=== PATIENT | male | born 1980 | race Caucasian/White ===

== ENCOUNTER 2016-06-04 22:16 | Emergency (ER) | payer OTHER ==
--- NOTE | 2016-06-04 23:55 | DIAGNOSTIC IMAGING REPORT ---
PROCEDURE: XR CHEST 1 VIEW INDICATION: CHEST PAIN TECHNIQUE: Single view chest. 2315 hours COMPARISON: 10/21/2011 FINDINGS: The cardiopulmonary contour and central vasculature are stable, within normal limits. The lungs are clear without focal consolidation, pleural effusion or pneumothorax. The osseous structures are intact. IMPRESSION: 1. No evidence of acute cardiopulmonary disease.
--- NOTE | 2016-06-05 02:39 | ED ORDER SUMMARY ---
..... Patient: TAM GUIDRY OrderSheet [facility] VisitID: [id number] [place] [address] 36y, M Registration Date/Time: 06/04/2016 ORDER SHEET Weight: 79.3 kg (stated) Allergies: No Known Drug Allergy GENERAL ORDERS: Bulk Plant Supervisor (Continuous) (23:02 06/04/2016 Homer ROBERT) (23:03 EInderbitzen R.N.) Chest 1V Urgent (23:06/04/2016 Homer ROBERT) (Ack 23:11 LMuller) (23:19 MCampbell) Cardiac Panel Stat (23:06/04/2016 Homer ROBERT) (23:03 EInderbitzen R.N.) Ethyl Alcohol Urgent (23:03 06/04/2016 Homer ROBERT) (23:03 EInderbitzen R.N.) Acetaminophen Level Urgent (23:06/04/2016 Hmoer ROBERT) (23:03 EInderbitzen R.N.) Pulse oximeter (23:03 06/04/2016 Homer ROBERT) (23:03 EInderbitzen R.N.) EKG - ER Stat (23:06/04/2016 Homer ROBERT) (23:03 EInderbitzen R.N.) MEDICATION ORDERS: Clonidine Topical 0.2 mg (NOW) (23:03 06/04/2016 Homer ROBERT) (Ack 23:04 EInderbitzen R.N.) (23:21 EInderbitzen R.N.) KCl PO 20 meq (NOW) (01:34 06/05/2016 Homer ROBERT) (1:43 EInderbitzen R.N.) IV FLUIDS: IV NS with Normal Saline 1 Liter, Multivitamin Concentrate Intravenous 1 amp/L, Thiamine HCl 100 mg/L: initial bolus none -, then 1000 mL/hr for X1 (NOW); Routine (23:02 06/04/2016 Homer ROBERT) (Ack 23:03 EInderbitzen R.N.) (23:21 EInderbitzen R.N.) Ativan IV 0.5 mg (NOW) (23:03 06/04/2016 Homer ROBERT) (Ack 23:04 EInderbitjose R.N.) (23:21 EInderbitzen R.N.) Zofran IV 4 mg (NOW) (23:03 06/04/2016 Homer ROBERT) (Ack 23:04 EInderbitzen R.N.) (23:20 EInderbitzen R.N.) Magnesium Sulfate IV 2 gm/50mL (NOW, over 2 hours) (01:34 06/05/2016 Homer ROBERT) (1:43 EInderbitzen R.N.) ORDER SHEET NOTES: [Electronically signed by Dahiana Michael R.N. (03:47 06/05/2016)] [Electronically signed by Tyrone Montalvo MD (17:40 06/07/2016)] [Electronically locked/signed by Dahiana Michael R.N. (03:47 06/05/2016)]
--- NOTE | 2016-06-05 02:39 | ED CLINICAL REPORT ---
Clinical Report - Physicians/Mid Levels [facility] [address] [place] [address] 06/04/2016 22:21 Patient: TAM GUIDRY Time Seen: 22:26 Jun 04 2016. Arrived- By private vehicle. Historian- patient. CPT: ER phys charges level 4 (#[id number]). HISTORY OF PRESENT ILLNESS Chief Complaint: CHEST DISCOMFORT. Due to rapid heart beat. It is described as palpitations and it is described as located in the central chest area. At its maximum, severity described as mild. When seen in the E.D., it was almost gone. Modifying factors- (ETOH makes it all better). 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 ( 3 days off pounding heart , feels weak. States is heavy drinker, every day, has been drinking all day today. Has been trying to detox himself and failed.). He has had difficulty breathing. Reports experiencing sweating episodes. No nausea or vomiting. and is still present. Onset during light activity. The patient has had nausea and has experienced diaphoresis. He has had mild vomiting. The vomiting has occurred only once. No coffee-grounds emesis or frankly bloody emesis. No difficulty breathing. (Pt stopped drinking 3 days ago but re-started today due to shakes, sweats and palpitations.). Similar symptoms previously: Milder. Recent medical care: Not recently seen/assessed. REVIEW OF SYSTEMS No fever, chills, cough, pedal edema or calf pain. No fainting episodes, headache, sore throat or blurred vision. No black stools or stools, difficulty with urination or urination or skin rash. No enlarged lymph nodes, joint pain, bloody stools or stools or constipation. No diarrhea, urinary frequency or hematuria. The patient has had mild abdominal pain. The pain is described as located in the upper abdomen and vomiting. The vomiting has occurred only once and nausea. All systems otherwise negative, except as recorded above. PAST HISTORY Hypertension. No history of heart disease, lung disease, renal disease, neurological disease or GI disease. No history of diabetes mellitus. Additional Surgeries: no known surgeries. Medications: None. Allergies: No Known Drug Allergy. SOCIAL HISTORY Alcohol use. Patient is a longstanding alcoholic. ADDITIONAL NOTES The nursing notes have been reviewed. PHYSICAL EXAM Vital Signs: 06/04/2016 22:24 BP: 159/94. HR: 120. RR: 20. O2 saturation: 100%. Temp: 98.4 F. Pain level now: 4/10. Appearance: Alert. Anxious. Patient in mild distress. Eyes: Pupils equal, round and reactive to light. Eyes normal inspection. ENT: Nose normal. Dry mucous membranes present. Neck: Normal inspection. Neck supple. CVS: Tachycardia. Heart sounds normal. Pulses normal. Respiratory: No respiratory distress. Breath sounds normal. Chest nontender. Abdomen: Soft. Mild tenderness in the epigastric area. No guarding. Bowel sounds normal. No mass. Back: Normal external inspection. Skin: Skin warm. Normal skin color. No rash. Extremities: Extremities exhibit normal ROM. No lower extremity edema. Neuro: Oriented X 3. No motor deficit. No sensory deficit. Reflexes normal. (no tremor). LABS, X-RAYS, AND EKG EKG: Normal sinus rhythm. Normal P waves. Normal QRS complex. Normal axis. Normal ST and T waves. Prior EKG unavailable. The study has been interpreted contemporaneously. The study has been independently viewed by me. The EKG appears to be a good tracing. Laboratory Tests: CBC w Diff: (VANESSA: 06/04/2016 22:30) ( MsgRcvd 06/04/2016 23:38) Final results Test Result Flag Units (Reference) WHITE BLOOD COUNT 7.8 K/uL (4.5-11.5) MANUAL DIFFERENTIAL TO FOLLOW. RED BLOOD COUNT 4.89 M/uL (4.50-5.90) HEMOGLOBIN 15.8 gm/dL (13.5-17.5) HEMATOCRIT 46.6 % (41.0-53.0) MEAN CELL VOLUME 95 fL (80-100) MEAN CORPUSCULAR HGB 32 pg (26-34) MEAN CORPUSCULAR HGB CONC 34 g/dL (31-37) RED CELL DISTRIBUTION WIDTH 12.1 % (11.6-14.8) PLATELET COUNT 163 K/uL (150-400) POLY % 70 % (50-75) BAND % 2 % (0-8) LYMPH 19 L % (25-40) MONO 9 % (3-14) EOSINOPHIL % 0 % (0-4) BASOPHIL % 0 % (0-2) METAMYELOCYTE % 0 % (0-1) MYELOCYTE 0 % (0-1) OTHER CELL TYPE 0 Acetaminophen Level: (VANESSA: 06/04/2016 22:30) ( MsgRcvd 06/04/2016 23:45) Final results Test Result Flag Units (Reference) ETHYL ALCOHOL 349 H mg/dL (3-10) ACETAMINOPHEN < 2.0 L ug/mL (10-30) CHEM 13 PANEL: (VANESSA: 06/04/2016 22:30) ( [facility] 06/04/2016 23:56) Final results Test Result Flag Units (Reference) GLUCOSE 120 H mg/dL (70-110) BUN 9 mg/dL (7-18) CREATININE 0.9 mg/dL (0.6-1.3) Estimated GFR >60 mL/min Estimated GFR- >60 mL/min Note: Persistent reduction over 3 months in eGFR<60 mL/min/1.73 m2 defines CKD. Patients with eGFR values>=60 mL/min/1.73 m2 may also have CKD if evidence ofpersistent proteinuria. Additional information may be foundat www.kidney.org. SODIUM 140 mmol/L (136-145) POTASSIUM 3.3 L mmol/L (3.5-5.1) CHLORIDE 99 mmol/L (98-107) CARBON DIOXIDE 31 mmol/L (21-32) CALCIUM 9.4 mg/dL (8.5-10.1) TOTAL PROTEIN 7.9 g/dL (6.4-8.2) ALBUMIN 4.5 g/dL (3.3-5.0) BILIRUBIN, TOTAL 1.1 H mg/dL (0.0-1.0) ALKALINE PHOSPHATASE 98 U/L (46-116) AST (SGOT) 337 H U/L (15-37) ALT (SGPT) 265 H U/L (12-78) MAGNESIUM 1.7 L mg/dL (1.8-2.4) TROPONIN I <0.05 ng/mL (0.00-1.5) TROPONIN REFERENCE RANGE:<0.1 NEGATIVE0.1-1.5 INDETERMINANT>1.5 POSITIVE CPK 2193 H U/L (24-260) CK-MB 23.1 H ng/mL (0.5-3.2) %CKMB 1.1 % (0.0-4.0) . PROGRESS AND PROCEDURES Course of Care: IV NS banana bag with thiamine Clonidine 0.2 patch Ativan 0.5 mg IV Zofran 4 mg IV Mgso4 2g IV KCL 20 meq po Discussed [place] [facility]. Patient is stable. Symptoms better. Patient/family counseled. Disposition: Discharged. Condition: stable and improved. CLINICAL IMPRESSION Alcohol withdrawal with irritability and agitation (palpitations). No delirium, hallucinations or delirium tremens. Hypokalemia Hypomagnesemia Alcoholic hepatitis Alcohol intoxication CK elevation. INSTRUCTIONS No strenuous activity. Rest. Do not work for three days until better. Avoid stimulants (such as cigarettes, coffee, cold medicines, sinus medicines, street drugs). Drink plenty of fluids. No alcohol. (Wear clonidine patch for 1 week. Contact [facility] for treatment.). Warnings: Further evaluation is necessary. SEDATIVE MEDICATION: You were given sedative medication during your visit. Do not drive or operate dangerous machinery. GENERAL WARNINGS: Return or contact your physician immediately if your condition worsens or changes unexpectedly, if not improving as expected, or if other problems arise. Prescription Medications: Ativan 1 mg: every 4 hours as needed. Dispense fifteen (15). No refill. Substitution is permissible. (use as needed for withdrawal symptoms.) KCL 20 meq po bid for 3 days. Follow-up: Follow up with your doctor in one week. Call for an appointment. Understanding of the discharge instructions verbalized by patient. (Electronically signed by Tyrone Montalvo MD 06/07/2016 17:40)
--- NOTE | 2016-06-05 02:39 | ED ORDER SUMMARY ---
..... Patient: TAM GUIDRY OrderSheet [facility] VisitID: [id number] [place] [address] 36y, M Registration Date/Time: 06/04/2016 ORDER SHEET Weight: 79.3 kg (stated) Allergies: No Known Drug Allergy GENERAL ORDERS: Director Geophysical Laboratory (Continuous) (23:02 06/04/2016 Homer ROBERT) (23:03 EInderbitzen R.N.) Chest 1V Urgent (23:06/04/2016 Homer ROBERT) (Ack 23:11 LMuller) (23:19 MCampbell) Cardiac Panel Stat (23:06/04/2016 Homer ROBERT) (23:03 EInderbitzen R.N.) Ethyl Alcohol Urgent (23:03 06/04/2016 Homer ROBERT) (23:03 EInderbitzen R.N.) Acetaminophen Level Urgent (23:06/04/2016 Homer ROBERT) (23:03 EInderbitzen R.N.) Pulse oximeter (23:03 06/04/2016 Homer ROBERT) (23:03 EInderbitzen R.N.) EKG - ER Stat (23:06/04/2016 Homer ROBERT) (23:03 EInderbitzen R.N.) MEDICATION ORDERS: Clonidine Topical 0.2 mg (NOW) (23:03 06/04/2016 Homer ROBERT) (Ack 23:04 EInderbitzen R.N.) (23:21 EInderbitzen R.N.) KCl PO 20 meq (NOW) (01:34 06/05/2016 Homer ROBERT) (1:43 EInderbitzen R.N.) IV FLUIDS: IV NS with Normal Saline 1 Liter, Multivitamin Concentrate Intravenous 1 amp/L, Thiamine HCl 100 mg/L: initial bolus none -, then 1000 mL/hr for X1 (NOW); Routine (23:02 06/04/2016 Homer ROBERT) (Ack 23:03 EInderbitzen R.N.) (23:21 EInderbitzen R.N.) Ativan IV 0.5 mg (NOW) (23:03 06/04/2016 Homer ROBERT) (Ack 23:04 EInderbitjose R.N.) (23:21 EInderbitzen R.N.) Zofran IV 4 mg (NOW) (23:03 06/04/2016 Homer ROBERT) (Ack 23:04 EInderbitzen R.N.) (23:20 EInderbitzen R.N.) Magnesium Sulfate IV 2 gm/50mL (NOW, over 2 hours) (01:34 06/05/2016 Homer ROBERT) (1:43 EInderbitzen R.N.) ORDER SHEET NOTES: [Electronically signed by Dahiana Michael R.N. (03:47 06/05/2016)] [Electronically signed by Tyrone Montalvo MD (17:40 06/07/2016)] [Electronically locked/signed by Dahiana Michael R.N. (03:47 06/05/2016)]
--- NOTE | 2016-06-05 02:39 | ED NURSING NOTES ---
Clinical Report - [facility] [address] [place] [address] 06/04/2016 22:21 Patient: TAM GUIDRY TRIAGE Triage time 22:Jun 04 2016. Acuity: LEVEL 3. Chief Complaint: CHEST PAIN. 22:24 06/04/16. SEPSIS SCREEN: Sepsis Screen. Negative (no infection suspected/documented). --22:34 Dahiana Michael R.N. 22:24 06/04/16. BP: 159/94. HR: 120. RR: 20. O2 saturation: 100%. Temp: 98.4 F. Pain level now: 06/04. --22:34 Dahiana Michael R.N. Weight: 79.3 kg stated. Height/Length: 71 inches Per Patient. BMI: 24.4. --22:23 Dahiana Michael R.N. Medications None. --22:25 Dahiana Michael R.N. Medication/allergy information source: the patient. --22:34 Dahiana Michael R.N. Allergies No Known Drug Allergy. --22:24 Dahiana Michael R.N. History Arrived by private vehicle. Historian: patient. Accompanied by family. This started today. ( 3 days off pounding heart , feel weaks. States is heavy drinker, every day, has been drinking all day today. Has been trying to detox himself and failed.). He has had difficulty breathing. Reports experiencing sweating episodes. No nausea or vomiting. 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 SOCIAL HX: Former smoker (quit 5 years ago). Heavy alcohol use; consumes beer daily, liquor daily and wine daily. Last drink was 1 hours ago. No infectious disease exposure. ABUSE ASSESSMENT: No report of abuse. SELF HARM ASSESSMENT: A self harm assessment was performed. The patient answered "no" to the question "Have you recently felt down, depressed, or hopeless?", "Have you noticed less interest or pleasure in doing things?", "Do you have thoughts of harming or killing yourself?", "Are you here because you tried to hurt yourself?", "Have you ever tried to hurt yourself before today?", "Have you recently had thoughts about harming or killing others?" and "Do you have any dangerous items in your possession?". NUTRITIONAL RISK ASSESSMENT: The nutritional risk assessment revealed no deficiencies. FUNCTIONAL ASSESSMENT: Functional assessment: no impairments noted. LEARNING NEEDS ASSESSMENT: The learning needs assessment revealed no barriers. SKIN INTEGRITY ASSESSMENT: Skin integrity risk assessment completed. No skin integrity risk identified. --22:34 Dahiana Michael R.N. PROBLEMS: Hypertension. --22:25 Dahiana Michael R.N. ADDITIONAL SURGERIES: no known surgeries. Interventions ID band on patient. --22:34 Dahiana Michael R.N. PHYSICAL ASSESSMENT 22:39 06/04/16. Ambulatory to room. GENERAL / NEURO / PSYCH: Alert. Oriented X 4. HEENT: Mucous membranes are pink. RESPIRATORY: Breath sounds within normal limits. CVS: Cardiac rhythm: sinus tachycardia. Heart sounds within normal limits. Pulses within normal limits. GI / : Abdomen soft and nontender. EXTREMITIES: No lower extremity edema. SKIN: Skin is warm and dry. Normal skin turgor. --22:39 Dahiana Michael R.N. NURSING PROGRESS NOTES 22:35 06/04/2016 Site #1 started via IV in the right antecubital space with an 20g angiocath, with aseptic technique and good blood return; one attempt. Blood drawn: rainbow set. Labeled in the presence of the patient and sent to the lab. Saline lock flushed with 10 mL saline. --22:45 Dahiana Michael R.N. 22:35 06/04/16. Cardiac rhythm: sinus tachycardia. The initial plan of care for this patient includes an assessment with efforts to address the presence of pain. bus driver/monitor and pulse oximeter placed on patient; environmental monitoring technician- Lead II; monitor alarms on. Patient gowned. Reassurance given to the patient. Patient identifiers checked. Call light placed in reach. Side rails up x 1. Bed placed in lowest position. Brakes of bed on. Patient ready for evaluation. --22:35 Dahiana Michael R.N. 22:44 06/04/16. EKG time: (:Jun 04 2016). EKG was performed by a tech and shown to the ED physician. --22:44 Dahiana Michael R.N. 23:15 06/04/2016 Zofran (Ondansetron HCl) IVP 4 mg given over 1 minute(s) via site #1. Allergies verified and confirmed 5 rights. IV patency established. IV site checked: no pain, redness, or swelling. IV flushed thoroughly pre- and post-medication administration. IVP given by RN. --23:20 Dahiana Michael R.N. 23:16 06/04/2016 Ativan (LORazepam) IVP 0.5 mg given over 1 minute(s) via site #1. Sedative warning given to the patient. IV patency established. IV site checked: no pain, redness, or swelling. IV flushed thoroughly pre- and post-medication administration. IVP given by RN. --23:21 Dahiana Michael R.N. 23:18 06/04/2016 Started bag #1 1000 mL IV Fluids IV NS (Saline); at 1000 mL/hr over 1 hour(s) via site #1 via IV pump. Allergies verified and confirmed 5 rights. IV patency established. IV site checked: no pain, redness, or swelling. IV flushed thoroughly pre- and post-medication administration. --23:21 Dahiana Michael R.N. 23:20 06/04/2016 Clonidine Topical Patch/Pad 0.2 mg. Applied to the left upper arm. Allergies verified and confirmed 5 rights. --23:21 Dahiana Michael R.N. 23:51 06/04/16. Cardiac rhythm: normal sinus rhythm. Reassessment after medication administered. Overall patient status is improved- he states feels better. --23:51 Dahiana Michael R.N. 23:51 06/04/16. BP: 124/69. HR: 92. RR: 16. O2 saturation: 95%. Pain level now 0/10. --23:51 Dahiana Michael R.N. 00:21 06/05/16. BP: 122/72. HR: 93. RR: 18. O2 saturation: 96%. Pain level now 0/10. --00:21 Dahiana Michael R.N. 00:20 06/05/2016 IV Fluids IV NS Discontinued: bag #1 completed. Total amount infused: 1000 mL. IV patency established. IV site checked: no pain, redness, or swelling. IV flushed thoroughly. --00:33 Dahiana Michael R.N. 00:21 06/05/16. Cardiac rhythm: normal sinus rhythm. RESPIRATORY: No respiratory distress. Breath sounds normal. CVS: Normal sinus rhythm noted. SKIN: Skin is warm and dry. Skin color within normal limits. --00:21 Dahiana Michael R.NJared 00:35 06/05/16. ( PO fluids given.). --00:35 Dahiana Michael R.N. 00:47 06/05/16. Patient waiting for disposition. --00:47 Dahiana Michael R.N. 01:32 06/05/16. BP: 112/73. HR: 88. RR: 18. O2 saturation: 95%. Temp: 98.0 F. Pain level now 0/10. --01:32 Dahiana Michael R.N. 01:32 06/05/16. Cardiac rhythm: normal sinus rhythm. RESPIRATORY: No respiratory distress. CVS: Normal sinus rhythm noted. SKIN: Skin is warm and dry. Skin color within normal limits. Patient waiting for disposition. --01:32 Dahiana Michael R.N. 01:40 06/05/2016 Magnesium Sulfate (Magnesium Sulfate in D5W) IVP 2 gm given over 2 hour(s) via site #1. Allergies verified and confirmed 5 rights. IV patency established. IV site checked: no pain, redness, or swelling. IV flushed thoroughly pre- and post-medication administration. IVP given by RN. --01:43 Dahiana Michael R.N. 01:40 06/05/2016 KCL (Potassium Chloride ER) PO Tablets 20 meq given. Allergies verified and confirmed 5 rights. --01:43 Dahiana Michael R.N. 02:23 06/05/16. Cardiac rhythm: normal sinus rhythm. The patient reports no complaints and he is calm and resting quietly. --02:23 Dahiana Michael R.N. 02:23 06/05/16. BP: 113/78. HR: 90. RR: 18. O2 saturation: 96%. Pain level now 0/10. --02:23 Dahiana Michael R.N. DISPOSITION / DISCHARGE 03:40 06/05/2016 Site #1 removed upon discharge. Catheter intact. Bandage applied. --03:46 Dahiana Michael R.N. 03:47 06/05/16. Departure time: 03:47 Jun 05 2016. Cardiac rhythm: normal sinus rhythm. Condition at departure: improved and stable. The goals identified in the patient's plan of care were met. No learning barriers present. Reviewed medication(s) side effects, precautions, dosing and course information. Prescription(s) given to the patient. Reviewed referral to a primary care physician, Alcoholics Anonymous and crisis hotline for followup. Summary of care provided to patient via paper. Patient verbalized understanding. Written instructions provided in Uzbek. The patient was discharged home and unaccompanied at time of discharge. He left the Emergency Department ambulatory and via (ambulatory). FALL RISK ASSESSMENT: Fall risk assessment completed. No fall risk identified. --03:47 Dahiana Michael R.N. 03:47 06/05/16. BP: 117/72. HR: 100. RR: 18. O2 saturation: 95%. Temp: 98.0 F. Pain level now 0/10. --03:47 Dahiana Michael R.N. Locked/Released at 06/05/2016 3:47 by Dahiana Michael R.N.
--- NOTE | 2016-06-07 17:40 | ED DISCHARGE INSTRUCTIONS ---
Patient: TAM GUIDRY General Instructions [facility] VisitID: [id number] [place] [address] 36y, M Registration Date/Time: 06/04/2016 Alcohol withdrawal with irritability and agitation (palpitations). No delirium, hallucinations or delirium tremens. Hypokalemia Hypomagnesemia Alcoholic hepatitis Alcohol intoxication CK elevation. INSTRUCTIONS No strenuous activity. Rest. Do not work for three days until better. Avoid stimulants (such as cigarettes, coffee, cold medicines, sinus medicines, street drugs). Drink plenty of fluids. No alcohol. (Wear clonidine patch for 1 week. Contact [facility] for treatment.). Warnings: Further evaluation is necessary. SEDATIVE MEDICATION: You were given sedative medication during your visit. Do not drive or operate dangerous machinery. GENERAL WARNINGS: Return or contact your physician immediately if your condition worsens or changes unexpectedly, if not improving as expected, or if other problems arise. Prescription Medications: Ativan 1 mg: every 4 hours as needed. Dispense fifteen (15). No refill. Substitution is permissible. (use as needed for withdrawal symptoms.) KCL 20 meq po bid for 3 days. Follow-up: Follow up with your doctor in one week. Call for an appointment. Understanding of the discharge instructions verbalized by patient. ADDITIONAL INFORMATION Alcohol Withdrawal Alcohol withdrawal symptoms occur if you have been drinking steadily for at least several days, and your body gets used to the effect of alcohol. When you suddenly stop drinking (or, even just cut down your daily intake but continue to drink), you may develop alcohol withdrawal, also called the The usual symptoms last 3-4 days and include nervousness, shakiness, nausea, sweating, sleeplessness. In severe cases hallucinations (seeing things that are not there) and seizures can occur. Home Care: You will need plenty of rest and fluids over the next several days. Eat regular meals. Of course, do not drink any more alcohol. During this time, it is best that you stay with family or friends who can help and support you. You can also admit yourself to a residential detox program. Do not drive until all symptoms are gone and you are feeling better. If you were given sedative medication to reduce your symptoms, do not take it more often than prescribed and never take it with alcohol. Follow Up: Once you have gone through the withdrawal symptoms, you have fought half of the robertson. To avoid the risk of returning to your previous drinking pattern, it is essential that you get follow-up support and treatment. Alcoholics Anonymous offers support through a self-help fellowship. There are no dues or fees. See the Yellow Pages and call for time and place of meetings. www.aa.org [employer] offers support to families of alcohol users. 110.741.9914 www.al-anon.org National [place] On Alcoholism And Drug Dependence 145-461-0278 www.ncadd.org Residential alcohol detox programs are available. Check the Yellow Pages under Drug Abuse & Treatment Centers. Get Prompt Medical Attention if any of the following occur: Severe shakiness Hallucinations Seizure Fever over 100.5 F (38.0 C) oral Headache, confusion, extreme drowsiness, inability to awaken Increasing upper abdominal pain Repeated vomiting or vomiting blood Lorazepam Oral tablet What is this medicine? LORAZEPAM (johana A ze mj) is a benzodiazepine. It is used to treat anxiety. How should I use this medicine? Take this medicine by mouth with a glass of water. Follow the directions on the prescription label. If it upsets your stomach, take it with food or milk. Take your medicine at regular intervals. Do not take it more often than directed. Do not stop taking except on the advice of your doctor or health geriatric personal care aide. Talk to your oracle financials developer regarding the use of this medicine in children. Special care may be needed. What side effects may I notice from receiving this medicine? Side effects that you should report to your doctor or health geriatric personal care aide as soon as possible: changes in vision confusion depression mood changes, excitability or aggressive behavior movement difficulty, staggering or jerky movements muscle cramps restlessness weakness or tiredness Side effects that usually do not require medical attention (report to your doctor or health geriatric personal care aide if they continue or are bothersome): constipation or diarrhea difficulty sleeping, nightmares dizziness, drowsiness headache nausea, vomiting What may interact with this medicine? barbiturate medicines for inducing sleep or treating seizures, like phenobarbital clozapine medicines for depression, mental problems or psychiatric disturbances medicines for sleep phenytoin probenecid theophylline valproic acid What if I miss a dose? If you miss a dose, take it as soon as you can. If it is almost time for your next dose, take only that dose. Do not take double or extra doses. Where should I keep my medicine? Keep out of the reach of children. This medicine can be abused. Keep your medicine in a safe place to protect it from theft. Do not share this medicine with anyone. Selling or giving away this medicine is dangerous and against the law. Store at room temperature between 20 and 25 degrees C (68 and 77 degrees F). Protect from light. Keep container tightly closed. Throw away any unused medicine after the expiration date. What should I tell my health care provider before I take this medicine? They need to know if you have any of these conditions: alcohol or drug abuse problem bipolar disorder, depression, psychosis or other mental health condition glaucoma kidney or liver disease lung disease or breathing difficulties myasthenia gravis Parkinson's disease seizures or a history of seizures suicidal thoughts an unusual or allergic reaction to lorazepam, other benzodiazepines, foods, dyes, or preservatives or trying to get breast-feeding What should I watch for while using this medicine? Visit your doctor or health geriatric personal care aide for regular checks on your progress. Your body may become dependent on this medicine, ask your doctor or health geriatric personal care aide if you still need to take it. However, if you have been taking this medicine regularly for some time, do not suddenly stop taking it. You must gradually reduce the dose or you may get severe side effects. Ask your doctor or health geriatric personal care aide for advice before increasing or decreasing the dose. Even after you stop taking this medicine it can still affect your body for several days. You may get drowsy or dizzy. Do not drive, use machinery, or do anything that needs mental alertness until you know how this medicine affects you. To reduce the risk of dizzy and fainting spells, do not stand or sit up quickly, especially if you are an older patient. Alcohol may increase dizziness and drowsiness. Avoid alcoholic drinks. Do not treat yourself for coughs, colds or allergies without asking your doctor or health geriatric personal care aide for advice. Some ingredients can increase possible side effects. You have been given the following additional information: Alcohol Withdrawal Lorazepam Oral tablet No strenuous activity. Rest. Do not work for three days until better. (Electronically signed by Tyrone Montalvo MD 06/07/2016 17:40)
--- NOTE | 2016-06-07 17:40 | ED DISCHARGE INSTRUCTIONS ---
Patient: TAM GUIDRY General Instructions [facility] VisitID: [id number] [place] [address] 36y, M Registration Date/Time: 06/04/2016 Alcohol withdrawal with irritability and agitation (palpitations). No delirium, hallucinations or delirium tremens. Hypokalemia Hypomagnesemia Alcoholic hepatitis Alcohol intoxication CK elevation. INSTRUCTIONS No strenuous activity. Rest. Do not work for three days until better. Avoid stimulants (such as cigarettes, coffee, cold medicines, sinus medicines, street drugs). Drink plenty of fluids. No alcohol. (Wear clonidine patch for 1 week. Contact [facility] for treatment.). Warnings: Further evaluation is necessary. SEDATIVE MEDICATION: You were given sedative medication during your visit. Do not drive or operate dangerous machinery. GENERAL WARNINGS: Return or contact your physician immediately if your condition worsens or changes unexpectedly, if not improving as expected, or if other problems arise. Prescription Medications: Ativan 1 mg: every 4 hours as needed. Dispense fifteen (15). No refill. Substitution is permissible. (use as needed for withdrawal symptoms.) KCL 20 meq po bid for 3 days. Follow-up: Follow up with your doctor in one week. Call for an appointment. Understanding of the discharge instructions verbalized by patient. ADDITIONAL INFORMATION Alcohol Withdrawal Alcohol withdrawal symptoms occur if you have been drinking steadily for at least several days, and your body gets used to the effect of alcohol. When you suddenly stop drinking (or, even just cut down your daily intake but continue to drink), you may develop alcohol withdrawal, also called the The usual symptoms last 3-4 days and include nervousness, shakiness, nausea, sweating, sleeplessness. In severe cases hallucinations (seeing things that are not there) and seizures can occur. Home Care: You will need plenty of rest and fluids over the next several days. Eat regular meals. Of course, do not drink any more alcohol. During this time, it is best that you stay with family or friends who can help and support you. You can also admit yourself to a residential detox program. Do not drive until all symptoms are gone and you are feeling better. If you were given sedative medication to reduce your symptoms, do not take it more often than prescribed and never take it with alcohol. Follow Up: Once you have gone through the withdrawal symptoms, you have fought half of the robertson. To avoid the risk of returning to your previous drinking pattern, it is essential that you get follow-up support and treatment. Alcoholics Anonymous offers support through a self-help fellowship. There are no dues or fees. See the Yellow Pages and call for time and place of meetings. www.aa.org [employer] offers support to families of alcohol users. 804.788.9250 www.al-anon.org National [place] On Alcoholism And Drug Dependence 474-221-7647 www.ncadd.org Residential alcohol detox programs are available. Check the Yellow Pages under Drug Abuse & Treatment Centers. Get Prompt Medical Attention if any of the following occur: Severe shakiness Hallucinations Seizure Fever over 100.5 F (38.0 C) oral Headache, confusion, extreme drowsiness, inability to awaken Increasing upper abdominal pain Repeated vomiting or vomiting blood Lorazepam Oral tablet What is this medicine? LORAZEPAM (johana A ze mj) is a benzodiazepine. It is used to treat anxiety. How should I use this medicine? Take this medicine by mouth with a glass of water. Follow the directions on the prescription label. If it upsets your stomach, take it with food or milk. Take your medicine at regular intervals. Do not take it more often than directed. Do not stop taking except on the advice of your doctor or health child day care center worker. Talk to your fish and game warden regarding the use of this medicine in children. Special care may be needed. What side effects may I notice from receiving this medicine? Side effects that you should report to your doctor or health child day care center worker as soon as possible: changes in vision confusion depression mood changes, excitability or aggressive behavior movement difficulty, staggering or jerky movements muscle cramps restlessness weakness or tiredness Side effects that usually do not require medical attention (report to your doctor or health child day care center worker if they continue or are bothersome): constipation or diarrhea difficulty sleeping, nightmares dizziness, drowsiness headache nausea, vomiting What may interact with this medicine? barbiturate medicines for inducing sleep or treating seizures, like phenobarbital clozapine medicines for depression, mental problems or psychiatric disturbances medicines for sleep phenytoin probenecid theophylline valproic acid What if I miss a dose? If you miss a dose, take it as soon as you can. If it is almost time for your next dose, take only that dose. Do not take double or extra doses. Where should I keep my medicine? Keep out of the reach of children. This medicine can be abused. Keep your medicine in a safe place to protect it from theft. Do not share this medicine with anyone. Selling or giving away this medicine is dangerous and against the law. Store at room temperature between 20 and 25 degrees C (68 and 77 degrees F). Protect from light. Keep container tightly closed. Throw away any unused medicine after the expiration date. What should I tell my health care provider before I take this medicine? They need to know if you have any of these conditions: alcohol or drug abuse problem bipolar disorder, depression, psychosis or other mental health condition glaucoma kidney or liver disease lung disease or breathing difficulties myasthenia gravis Parkinson's disease seizures or a history of seizures suicidal thoughts an unusual or allergic reaction to lorazepam, other benzodiazepines, foods, dyes, or preservatives or trying to get breast-feeding What should I watch for while using this medicine? Visit your doctor or health child day care center worker for regular checks on your progress. Your body may become dependent on this medicine, ask your doctor or health child day care center worker if you still need to take it. However, if you have been taking this medicine regularly for some time, do not suddenly stop taking it. You must gradually reduce the dose or you may get severe side effects. Ask your doctor or health child day care center worker for advice before increasing or decreasing the dose. Even after you stop taking this medicine it can still affect your body for several days. You may get drowsy or dizzy. Do not drive, use machinery, or do anything that needs mental alertness until you know how this medicine affects you. To reduce the risk of dizzy and fainting spells, do not stand or sit up quickly, especially if you are an older patient. Alcohol may increase dizziness and drowsiness. Avoid alcoholic drinks. Do not treat yourself for coughs, colds or allergies without asking your doctor or health child day care center worker for advice. Some ingredients can increase possible side effects. You have been given the following additional information: Alcohol Withdrawal Lorazepam Oral tablet No strenuous activity. Rest. Do not work for three days until better. (Electronically signed by Tyrone Montalvo MD 06/07/2016 17:40)
--- NOTE | 2016-06-07 17:40 | ED MED RECONCILIATION SUMMARY ---
Patient: TAM GUIDRY Medication Reconciliation Report [facility] VisitID: [id number] [place] [address] 36y, M Registration Date/Time: 06/04/2016 Weight: 79.3 kg Height/Length: 71 in. BMI: 24.4 ALLERGIES: No Known Drug Allergy The patient's Home Medications are listed below: NONE. The source(s) of the original Home Medication information: patient The following Medications were given to the patient in the Emergency Department: Zofran [IVP] IVP 4 mg, administered: 06/04/2016 11:15:00 PM Ativan [IVP] IVP 0.5 mg, administered: 06/04/2016 11:16:00 PM Clonidine [Topical] Topical 0.2 mg, administered: 06/04/2016 11:20:00 PM IV NS IV Fluids bolus 0, then 1000 mL/hr, administered: 06/04/2016 11:18:00 PM Magnesium Sulfate [IVP] IVP 2 gm, administered: 06/05/2016 1:40:00 AM KCL [PO] PO 20 meq, administered: 06/05/2016 1:40:00 AM The following Medications were prescribed to the patient: KCL 20 meq po bid for 3 days. -- Tyrone Montalvo MD Ativan 1 mg: every 4 hours as needed. Dispense fifteen (15). No refill. Substitution is permissible.(use as needed for withdrawal symptoms.) -- Tyrone Montalvo MD
--- NOTE | 2016-06-07 17:40 | ED MAR SUMMARY ---
..... Medication Administration Record [facility] [address] [place] [address] Patient: TAM GUIDRY Visit ID: [id number] 36y, M Weight: 79.3 kg Height/Length: 71 in BMI: 24.4 ALLERGIES: No Known Drug Allergy Given 23:15 06/04/2016 Dahiana Michael R.N. Medication Administered: ZOFRAN [IVP] (ONDANSETRON HCL), Dose: 4 mg IVP over 1 minute(s), Site: #1 right AC. Medication Ordered: Zofran IV 4 mg (NOW). Given 23:16 06/04/2016 Dahiana Michael R.N. Medication Administered: ATIVAN [IVP] (LORAZEPAM), Dose: 0.5 mg IVP over 1 minute(s), Site: #1 right AC. Medication Ordered: Ativan IV 0.5 mg (NOW). Start 23:18 06/04/2016 Dahiana Michael R.N., Stop 00:20 06/05/2016 Dahiana Michael R.N. Medication Administered: IV NS (SALINE), Dose: IV Fluids over 1 hour(s), Rate: 1000 mL/hr, Dispensed: 1000 mL bag, Site: #1 right AC. Medication Ordered: IV NS with Normal Saline 1 Liter, Multivitamin Concentrate Intravenous 1 amp/L, Thiamine HCl 100 mg/L: initial bolus none -, then 1000 mL/hr for X1 (NOW); Routine. Given 23:06/04/2016 Dahiana Michael R.N. Medication Administered: CLONIDINE [TOPICAL], Dose: 0.2 mg Patch/Pad Topical. Medication Ordered: Clonidine Topical 0.2 mg (NOW). Given 06/05/2016 Dahiana Michael R.N. Medication Administered: MAGNESIUM SULFATE [IVP] (MAGNESIUM SULFATE IN D5W), Dose: 2 gm IVP over 2 hour(s), Site: #1 right AC. Medication Ordered: Magnesium Sulfate IV 2 gm/50mL (NOW, over 2 hours). Given 06/05/2016 Dahiana Michael R.N. Medication Administered: KCL [PO] (POTASSIUM CHLORIDE ER), Dose: 20 meq Tablets PO. Medication Ordered: KCl PO 20 meq (NOW).
--- NOTE | 2016-06-07 17:40 | ED MED RECONCILIATION SUMMARY ---
Patient: TAM GUIDRY Medication Reconciliation Report [facility] VisitID: [id number] [place] [address] 36y, M Registration Date/Time: 06/04/2016 Weight: 79.3 kg Height/Length: 71 in. BMI: 24.4 ALLERGIES: No Known Drug Allergy The patient's Home Medications are listed below: NONE. The source(s) of the original Home Medication information: patient The following Medications were given to the patient in the Emergency Department: Zofran [IVP] IVP 4 mg, administered: 06/04/2016 11:15:00 PM Ativan [IVP] IVP 0.5 mg, administered: 06/04/2016 11:16:00 PM Clonidine [Topical] Topical 0.2 mg, administered: 06/04/2016 11:20:00 PM IV NS IV Fluids bolus 0, then 1000 mL/hr, administered: 06/04/2016 11:18:00 PM Magnesium Sulfate [IVP] IVP 2 gm, administered: 06/05/2016 1:40:00 AM KCL [PO] PO 20 meq, administered: 06/05/2016 1:40:00 AM The following Medications were prescribed to the patient: KCL 20 meq po bid for 3 days. -- Tyrone Montalvo MD Ativan 1 mg: every 4 hours as needed. Dispense fifteen (15). No refill. Substitution is permissible.(use as needed for withdrawal symptoms.) -- Tyrone Montalvo MD
--- NOTE | 2016-06-07 17:40 | ED MAR SUMMARY ---
..... Medication Administration Record [facility] [address] [place] [address] Patient: TAM GUIDRY Visit ID: [id number] 36y, M Weight: 79.3 kg Height/Length: 71 in BMI: 24.4 ALLERGIES: No Known Drug Allergy Given 23:15 06/04/2016 Dahiana Michael R.N. Medication Administered: ZOFRAN [IVP] (ONDANSETRON HCL), Dose: 4 mg IVP over 1 minute(s), Site: #1 right AC. Medication Ordered: Zofran IV 4 mg (NOW). Given 23:16 06/04/2016 Dahiana Michael R.N. Medication Administered: ATIVAN [IVP] (LORAZEPAM), Dose: 0.5 mg IVP over 1 minute(s), Site: #1 right AC. Medication Ordered: Ativan IV 0.5 mg (NOW). Start 23:18 06/04/2016 Dahiana Michael R.N., Stop 00:20 06/05/2016 Dahiana Michael R.N. Medication Administered: IV NS (SALINE), Dose: IV Fluids over 1 hour(s), Rate: 1000 mL/hr, Dispensed: 1000 mL bag, Site: #1 right AC. Medication Ordered: IV NS with Normal Saline 1 Liter, Multivitamin Concentrate Intravenous 1 amp/L, Thiamine HCl 100 mg/L: initial bolus none -, then 1000 mL/hr for X1 (NOW); Routine. Given 23:06/04/2016 Dahiana Michael R.N. Medication Administered: CLONIDINE [TOPICAL], Dose: 0.2 mg Patch/Pad Topical. Medication Ordered: Clonidine Topical 0.2 mg (NOW). Given 06/05/2016 Dahiana Michael R.N. Medication Administered: MAGNESIUM SULFATE [IVP] (MAGNESIUM SULFATE IN D5W), Dose: 2 gm IVP over 2 hour(s), Site: #1 right AC. Medication Ordered: Magnesium Sulfate IV 2 gm/50mL (NOW, over 2 hours). Given 06/05/2016 Dahiana Michael R.N. Medication Administered: KCL [PO] (POTASSIUM CHLORIDE ER), Dose: 20 meq Tablets PO. Medication Ordered: KCl PO 20 meq (NOW).
== END 2016-06-05 03:47 | disposition home or self-care (01) ==
LOC: ED SRH 22:16
DX: F10.239 Alcohol dependence with withdrawal, unspecified (principal); R00.2 Palpitations; R45.4 Irritability and anger; R45.1 Restlessness and agitation; E87.6 Hypokalemia; E83.42 Hypomagnesemia; K70.10 Alcoholic hepatitis without ascites; R94.4 Abnormal results of kidney function studies; Z87.891 Personal history of nicotine dependence; I10 Essential (primary) hypertension
CPT/HCPCS: 90100; 90616; 90617; 91643; 92010; 92610; 92720; 95059; 97000